=== PATIENT | male | born 1930 | race Caucasian/White ===

== ENCOUNTER → 2018-05-23 | Outpatient (CLI) | payer MEDICARE | END | disposition home or self-care (01) | LOC: PCVCCLINIC 15:20 | PROVIDERS: ATTEND Internal Medicine | DX: I10 Essential (primary) hypertension (principal); R94.31 Abnormal electrocardiogram [ECG] [EKG]; R93.1 Abnormal findings on diagnostic imaging of heart and coronary circulation; E78.5 Hyperlipidemia, unspecified; M31.6 Other giant cell arteritis; K21.9 Gastro-esophageal reflux disease without esophagitis; Z88.2 Allergy status to sulfonamides; Z87.891 Personal history of nicotine dependence; Z79.899 Other long term (current) drug therapy | CPT/HCPCS: 93005; G0463 ==

== ENCOUNTER → 2018-05-24 | Outpatient (CLI) | payer MEDICARE ==
--- NOTE | 2018-05-28 08:15 | PCVCIMAG ---
APPROVED REPORT Study performed: 05/24/2018 13:09:45 EXAM: Comprehensive 2D, Doppler, and color-flow Echocardiogram Patient Location: Echo lab Room #: 2Status: routine BSA: 1.88 HR: 62 bpmBP: 102/62 mmHg Rhythm: NSR Other Information Study Quality: Good Risk Factors: Cardiac Risk Factors: HTN, Hyperlipidemia Indications Pre-Op CAD Cor Ca score 100-199 2D Dimensions IVSd: 8.83 (7-11mm)LVOT Diam: 22.60 (18-24mm) LVDd: 41.78 mm PWd: 8.25 (7-11mm) LVDs: 24.64 (25-40mm) Left Atrium: 26.37 (27-40mm) Aortic Root: 29.54 mm LV Single Plane 4CH: 59.02 % LV Single Plane 2CH: 61.73 % Biplane EF: 63.0 % Volumes Left Atrial Volume (Systole) Single Plane 4CH: 30.26 mLSingle Plane 2CH: 54.30 mL Biplane LA Volume: 42.00 mLLA ESV Index: 22.00 mL/m2 Aortic Valve AoV Peak Hugo.: 1.25 m/s AO Peak Gr.: 8.55 mmHgLVOT Max P.21 mmHg LVOT Max V: 1.00 m/s ELENA Vmax: 3.22 cm2 Mitral Valve E/A Ratio: 0.9 MV Decel. Time: 306.85 ms MV E Max Hugo.: 0.59 m/s MV A Hugo.: 0.69 m/s TDI E/Lateral E': 8.43E/Medial E': 11.80 Medial E' Hugo.: 0.05 m/s Lateral E' Hugo.: 0.07 m/s Pulmonary Valve PV Peak Hugo.: 0.93 m/sPV Peak Gr.: 3.66 mmHg Pulmonary Vein P Vein S: 0.58 m/sP Vein A: 0.40 m/s P Vein D: 0.23 m/sP Vein A Dur.: 103.8 msec P Vein S/D Ratio: 2.52 Tricuspid Valve TR Peak Hugo.: 2.48 m/s TR Peak Gr.: 24.57 mmHg TV Vmax: 0.55 m/sPA Pressure: 32.00 mmHg Left Ventricle The left ventricle is normal size. There is normal LV segmental wall motion. There is normal left ventricular wall thickness. Left ventricular systolic function is normal. The left ventricular ejection fraction is within the normal range. LVEF is 60-65%. Grade I - abnormal relaxation pattern. Right Ventricle The right ventricle is normal size. The right ventricular systolic function is normal. Atria The left atrium size is normal. The right atrium size is normal. Aortic Valve Aortic valve is trileaflet, mild calcification No aortic regurgitation. There is no aortic valvular stenosis. Mitral Valve The mitral valve is normal in structure. There is no mitral valve regurgitation noted. No evidence of mitral valve stenosis. Tricuspid Valve The tricuspid valve is normal in structure. Mild tricuspid regurgitation with a PA pressure of 30 mmHg. Pulmonic Valve The pulmonary valve is normal in structure. There is no pulmonic valvular regurgitation. Great Vessels The aortic root is normal in size. IVC is normal in size and collapses >50% with inspiration. Pericardium There is no pericardial effusion. <Conclusion> Left ventricular systolic function is normal. There is normal LV segmental wall motion. LVEF is 60-65%. Mild diastolic dysfunction Aortic valve is trileaflet, mild calcification. No aortic regurgitation or stenosis. The mitral valve is normal in structure. No mitral valve regurgitation Mild tricuspid regurgitation with a pulmonary artery pressure of 30 mmHg. There is no pericardial effusion.
== END | disposition home or self-care (01) ==
LOC: PCVCIMAG 13:09
PROVIDERS: ATTEND Internal Medicine
DX: Z01.818 Encounter for other preprocedural examination (principal); I07.1 Rheumatic tricuspid insufficiency; E78.5 Hyperlipidemia, unspecified; R93.1 Abnormal findings on diagnostic imaging of heart and coronary circulation; I35.8 Other nonrheumatic aortic valve disorders
CPT/HCPCS: 93306